=== PATIENT | female | born 1945 | race Caucasian/White ===

== ENCOUNTER 2017-02-27 12:12 | Emergency (ER) | payer MEDICAID ==
[~2017-02-27] VITALS: Ht 157.5 cm; Wt 78.0 kg
[~2017-02-27 12:12] MED LIST: AMLO-218 PO; ASPI325T32 PO; BENA40TA54 PO; DOCU100C53 PO; HYDR-3671 PO; HYDR12.53 PO; HYDR12.544 PO; METF500T4 PO; RANI150T9 PO; SIMV20TA2 PO
[2017-02-27 12:19] VITALS: Ht 157.5 cm; Wt 78.0 kg
[2017-02-27] MEDS ORDERED: ONDANSETRON 4 MG INJ IV STA (12:26)
[2017-02-27 13:14] LABS: BASOPHILS % 0.5 % (0.0-2.0); EOSINOPHILS % 0.2 % (0.0-7.0); HEMATOCRIT 42.9 % (37.0-47.0); HEMOGLOBIN 13.7 g/dl (12.0-16.0); LYMPHOCYTES # 1.2 10^3/ul (0.8-2.9); LYMPHOCYTES % 14.1 % (15.0-51.0); MEAN CORPUSCULAR HEMOGLOBIN 25.7 pg (29.0-33.0); MEAN CORPUSCULAR HGB CONC 31.9 g/dl (32.0-37.0); MEAN CORPUSCULAR VOLUME 80.5 fl (82.0-101.0); MEAN PLATELET VOLUME 10.4 fl (7.4-10.4); MONOCYTE # 0.4 10^3/ul (0.3-0.9); MONOCYTES % 4.3 % (0.0-11.0); NEUTROPHIL # 6.6 10^3/ul (1.6-7.5); NEUTROPHILS % 80.7 % (39.0-77.0); PLATELET COUNT 305 10^3/UL (140-415); RED BLOOD COUNT 5.33 10^6/ul (4.20-5.40); RED CELL DISTRIBUTION WIDTH 16.4 % (11.5-14.5); WHITE BLOOD COUNT 8.2 10^3/ul (4.8-10.8)
[2017-02-27 13:36] LABS: ALANINE AMINOTRANSFERASE 26 IU/L (13-69); ALBUMIN 4.2 g/dl (3.3-4.9); ALKALINE PHOSPHATASE 129 IU/L (42-121); ANION GAP 17 (8-16); ASPARTATE AMINO TRANSFERASE 21 IU/L (15-46); BILIRUBIN,INDIRECT 0.4 mg/dl (0-1.1); BILIRUBIN,TOTAL 0.4 mg/dl (0.2-1.3); BLOOD UREA NITROGEN 17 mg/dl (7-20); CALCIUM 9.6 mg/dl (8.4-10.2); CARBON DIOXIDE 25 mmol/L (21-31); CHLORIDE 103 mmol/L (97-110); GLUCOSE 145 mg/dl (70-220); SODIUM 142 mmol/L (135-144)
[2017-02-27 13:48] LABS: TROPONIN-I < 0.012 ng/ml (0.00-0.12)
[2017-02-27] MEDS ORDERED: POTASSIUM CHLORIDE (SR) 20 MEQ TAB PO STA (14:02)
--- NOTE | 2017-02-27 14:13 | RADRPT ---
PROCEDURE: CT Brain without contrast. CLINICAL INDICATION: Dizziness, headache. TECHNIQUE: A CT of the brain without contrast was performed utilizing axial sections from the skul l base through the vertex. One or more the following does reduction techniques were utilized: Automa reginald exposure control, adjustment of the mA/ or kV according to patient's size, or use of iterative r econstruction technique. Total exam CTDIvol is 44.63 MGy and DLP is 720.23 mGy-cm. DICOM images are available. COMPARISON: Brain CT 11/04/2013. FINDINGS: The ventricles and sulci are mildly prominent indicative of volume loss. There is no intracranial h emorrhage, mass effect or midline shift. No abnormal intra-axial or extra-axial fluid collections a re seen. The orozco/white matter differentiation is well preserved. There are moderate foci of hypoattenuation in the white matter, which are nonspecific in etiology bu t likely reflect chronic small vessel ischemic changes. There are mild intracranial vascular calcifi cations consistent with atherosclerosis. The visualized paranasal sinuses are essentially clear. IMPRESSION: 1. No acute intracranial hemorrhage, transcortical infarction or mass effect. 2. Mild intracranial atherosclerosis and moderate chronic small vessel ischemic changes. 3. Mild generalized cerebral volume loss. RPTAT: HH .Marino Marc MD, Date Time Electronically viewed and signed by .Marino Marc MD, MD on 02/27/2017 14:13 .N/
--- NOTE | 2017-02-27 14:14 | RADRPT ---
PROCEDURE: CT ABDOMEN AND PELVIS WITHOUT CONTRAST. CLINICAL INDICATION: Vomiting without evidence of abdominal pain. TECHNIQUE: CT scan of the abdomen and pelvis without contrast was performed on a multidetector hig h-resolution CT scanner. The patient was scanned without intravenous contrast. Coronal and sagittal reformatted images were obtained from the axial source images. Images were reviewed on a high-resol [employer] PACS workstation. The total exam CTDI equals 15.7 mGy and the total exam DLP equals 1014 mGy-c m. One or more of the following dose reduction techniques were used: Automated exposure control. Adjustment of the mA and/or kV according to patient size. Use of iterative reconstruction technique. DICOM images are available COMPARISON: None FINDINGS: CT abdomen: Left lower lobe atelectasis noted. Heart size is mildly enlarged. No significant pericardial effusio n. Hepatic morphology is within limits. No gross contour deforming masses. Gallbladder is unremarkable. No evidence of intrahepatic or extrahepatic biliary dilatation. The spleen and pancreas are within normal limits. Both adrenal glands are within normal limits. Both kidneys are in normal anatomic position. No evidence of obstruction or hydronephrosis. No gross renal/ureteric calculi. The visualized GI tract demonstrate normal caliber loops of small and large bowel. No evidence of lencho wel obstruction. The appendix is within normal limits. There is diffuse colonic diverticulosis. Atherosclerotic calcification of the aorta is identified. There is no significant retroperitoneal ly mphadenopathy. CT pelvis: The bladder is within normal limits. The uterus is not visualized and the rectosigmoid colon is with in normal limits. No significant free fluid. No significant pelvic lymphadenopathy. The visualized osseous structures demonstrate multilevel degenerative disease of the spine. IMPRESSION: 1. No evidence of acute intra-abdominal/pelvic inflammatory process. No evidence of bowel obstructio n. The appendix is within normal limits. 2. Colonic diverticulosis. No evidence of free fluid or free air. No gross focal fluid collections. 3. Gallbladder is mildly distended, however no gross radiopaque stones. If there is concern for gal lstones, ultrasound would be more sensitive. 4. No gross renal/ureteric calculi. No evidence of obstruction or hydronephrosis. RPTAT: AARR Jasony Lue, Physician Date Time Electronically viewed and signed by Nicki Varela, Physician on 02/27/2017 14:14 JL/
[2017-02-27] MEDS ORDERED: OSLT75C PO (14:21)
--- NOTE | 2017-02-27 14:24 | ERD ---
ER Documentation Chief Complaint Chief Complaint VOMITING, WEAK HPI Patient is a 71-year-old female with diabetes, hypertension, and stroke who presents with dizziness and vomiting. The patient had shaking all over as well as headache. The patient said she felt like fainting. Yesterday she does have vomiting but today the symptoms were worse. She also is complaining of back pain. She has had no fevers. She has had no treatment as of yet. She does not currently have a primary doctor. The daughter was concerned about fluid she has not had her flu shot yet this year. ROS All systems reviewed and are negative except as per history of present illness. Medications Home Meds Active Scripts Oseltamivir Phosphate* (Tamiflu*) 75 Mg Capsule, 75 MG PO BID for 5 Days, CAP Prov:MAIRA FERRERA MD 02/27/17 Hydralazine Hcl* (Hydralazine Hcl*) 25 Mg Tab, 25 MG PO TID for 60 Days, TAB Prov:NARCISO THACKER 11/06/13 Reported Medications Ranitidine Hcl* (Zantac*) 150 Mg Tablet, 150 MG PO HS, TAB 11/04/13 Amlodipine Besylate* (Norvasc*) 10 Mg Tablet, 10 MG PO DAILY, TAB 11/04/13 Aspirin (Aspirin) 325 Mg Tablet.dr, 325 MG PO DAILY 07/05/13 Docusate Sodium (DOCU SOFT) 100 Mg Capsule, 100 MG PO BID 07/04/13 Simvastatin (Simvastatin) 20 Mg Tablet, 20 MG PO QHS 07/04/13 Metformin* (Glucophage*) 500 Mg Tab, 500 MG PO BID 07/04/13 Benazepril Hcl* (Lotensin*) 40 Mg Tablet, 40 MG PO DAILY 07/04/13 Discontinued Reported Medications Hydrochlorothiazide* (Microzide*) 12.5 Mg Capsule, 12.5 MG PO DAILY, CAP 11/04/13 Discontinued Scripts Hydrochlorothiazide (Hydrochlorothiazide) 12.5 Mg Cap, 25 MG PO DAILY for 60 Days Prov:NARCISO THACKER 11/06/13 Allergies Allergies: Coded Allergies: No Known Drug Allergies (Verified Allergy, Unknown, 02/27/17) PMhx/Soc History of Surgery: No Anesthesia Reaction: No Hx Neurological Disorder: Yes (HX OF CVA X2) Hx Respiratory Disorders: Yes (PNU 4 MONTHS AGO) Hx Cardiac Disorders: Yes (HIGH BP 20YRS) Hx Psychiatric Problems: Yes Hx Miscellaneous Medical Probl: Yes (prior CVAs, htn, arthritis, dyslipidemia, DM) Hx Alcohol Use: No Hx Substance Use: No Hx Tobacco Use: No Smoking Status: Never smoker FmHx Family History: diabetes Physical Exam Vitals Vital Signs Date Time Temp Pulse Resp B/P Pulse Ox O2 Delivery O2 Flow Rate FiO2 02/27/17 12:19 98.1 83 18 143/83 99 Physical Exam Const: Moderate distress Head: Atraumatic Eyes: Normal Conjunctiva ENT: Normal External Ears, Nose and Mouth. Neck: Full range of motion..~ No meningismus. Resp: Clear to auscultation bilaterally Cardio: Regular rate and rhythm, no murmurs Abd: Soft, non tender, non distended. Normal bowel sounds Skin: No petechiae or rashes Back: No midline or flank tenderness Ext: No cyanosis, or edema Neur: Awake and alert Psych: Normal Mood and Affect Result Diagram: 02/27/17 1245 02/27/17 1245 Results 24 hrs Laboratory Tests Test 02/27/17 12:44 02/27/17 12:45 Bedside Glucose 138mg/dL White Blood Count 8.210^3/ul Red Blood Count 5.3310^6/ul Hemoglobin 13.7g/dl Hematocrit 42.9% Mean Corpuscular Volume 80.5fl Mean Corpuscular Hemoglobin 25.7pg Mean Corpuscular Hemoglobin Concent 31.9g/dl Red Cell Distribution Width 16.4% Platelet Count 06003^3/UL Mean Platelet Volume 10.4fl Neutrophils % 80.7% Lymphocytes % 14.1% Monocytes % 4.3% Eosinophils % 0.2% Basophils % 0.5% Nucleated Red Blood Cells % 0.0/100WBC Neutrophils # 6.610^3/ul Lymphocytes # 1.210^3/ul Monocytes # 0.410^3/ul Eosinophils # 0.010^3/ul Basophils # 0.010^3/ul Nucleated Red Blood Cells # 0.010^3/ul Sodium Level 142mmol/L Potassium Level 3.0mmol/L Chloride Level 103mmol/L Carbon Dioxide Level 25mmol/L Anion Gap 17 Blood Urea Nitrogen 17mg/dl Creatinine 0.80mg/dl Glucose Level 145mg/dl Calcium Level 9.6mg/dl Total Bilirubin 0.4mg/dl Direct Bilirubin 0.00mg/dl Indirect Bilirubin 0.4mg/dl Aspartate Amino Transf (AST/SGOT) 21IU/L Alanine Aminotransferase (ALT/SGPT) 26IU/L Alkaline Phosphatase 129IU/L Troponin I < 0.012ng/ml Total Protein 8.0g/dl Albumin 4.2g/dl Globulin 3.80g/dl Albumin/Globulin Ratio 1.10 Lipase 65U/L Current Medications Medications (Trade) Dose Ordered Sig/Karson Route PRN Reason Start Time Stop Time Status Last Admin Dose Admin Ondansetron HCl (Zofran Inj) 4 mg ONCE STAT IV 02/27/17 12:26 02/27/17 12:27 DC 02/27/17 12:54 Oseltamivir Phosphate (Tamiflu) 75 mg ONCE ONCE PO 02/27/17 14:30 02/27/17 14:31 DC Potassium Chloride (Klor-Con 20) 40 meq ONCE STAT PO 02/27/17 14:02 02/27/17 14:04 DC Procedures/MDM EKG read by me: Rate/Rhythm: Regular rate and rhythm at a normal rate Intervals: Normal Impression: No evidence of ischemia or arrhythmia Chest x-ray negative for pneumonia or pneumothorax. CT abdomen pelvis shows no surgical process per radiology. CT brain shows no intrarenal mass or hemorrhage per radiology. Patient is a 71-year-old female who presents with multiple symptoms. She was given a full workup in the emergency department she was found to have a mild hypokalemia with a potassium of 3.0. She was given potassium by mouth for repletion. She was also found to have a positive influenza test and was given a dose of Tamiflu. Her vital signs are normal at this time and she is in no distress and I believe that outpatient management would be appropriate. I doubt sepsis, pneumonia, or serious intra-abdominal process. I doubt intracranial hemorrhage or mass. The patient will be discharged with a prescription for Tamiflu but will need to follow-up with the local clinics within 24-48 hours for reevaluation. She can return sooner for any worsening symptoms. Departure Diagnosis: Primary Impression: Influenza Additional Impressions: Vomiting Vomiting type: unspecified Vomiting Intractability: non-intractable Nausea presence: with nausea Qualified Code: R11.2 - Non-intractable vomiting with nausea, unspecified vomiting type Hypokalemia Condition: Fair Patient Instructions: Influenza (Adult), Vomiting (6Y-Adult) Referrals: [facility] YOU HAVE RECEIVED A MEDICAL SCREENING EXAM AND THE RESULTS INDICATE THAT YOU DO NOT HAVE A CONDITION THAT REQUIRES URGENT TREATMENT IN THE EMERGENCY DEPARTMENT. FURTHER EVALUATION AND TREATMENT OF YOUR CONDITION CAN WAIT UNTIL YOU ARE SEEN IN YOUR DOCTORS OFFICE WITHIN THE NEXT 1-2 DAYS. IT IS YOUR RESPONSIBILITY TO MAKE AN APPOINTMENT FOR FOLOW-UP CARE. IF YOU HAVE A PRIMARY DOCTOR --you should call your primary doctor and schedule an appointment IF YOU DO NOT HAVE A PRIMARY DOCTOR YOU CAN CALL OUR PHYSICIAN REFERRAL HOTLINE AT IF YOU CAN NOT AFFORD TO SEE A PHYSICIAN YOU CAN CHOSE FROM THE FOLLOWING [facility] [address] [address] [facility] [address] [facility] [address] [facility] [address] [facility]. [facility] [address] [facility]. [facility] [address] Additional Instructions: Call your primary care doctor TOMORROW for an appointment during the next 1-2 days.See the doctor sooner or return here if your condition worsens before your appointment time. MAIRA FERRERA MD Feb 27, 2017 14:24
[2017-02-27] MEDS ORDERED: OSELTAMIVIR 75 MG CAP PO ONE (14:30)
[2017-02-27 14:56] VITALS: BP 147/90; PULSE 89; RESP 18; TEMP 98.8
[2017-02-27] MEDS ORDERED: ACETAMINOPHEN 325 MG TAB PO ONE (15:00)
== END 2017-02-27 17:30 | disposition home or self-care (01) ==
LOC: E/R 12:12
DX: J10.1 Influenza due to other identified influenza virus with other respiratory manifestations (principal); R11.2 Nausea with vomiting, unspecified; E87.6 Hypokalemia; I10 Essential (primary) hypertension; E11.9 Type 2 diabetes mellitus without complications; Z79.82 Long term (current) use of aspirin; Z79.84 Long term (current) use of oral hypoglycemic drugs
CPT/HCPCS: 36415; 70450; 74176; 80053; 82962; 83690; 84484; 85025; 87400; 93005; 96374; J2405; Z7502; Z7610

== ENCOUNTER 2017-03-10 03:13 | Inpatient (IN) | END 2017-03-12 15:35 | disposition home or self-care (01) | DRG 872 ==